=== PATIENT | female | born 1960 | race Caucasian/White ===

== ENCOUNTER 2020-09-18 10:35 | Emergency (ER) | payer OTHER ==
[~2020-09-18] VITALS: Ht 165.1 cm; Wt 105.1 kg
[2020-09-18] MEDS ORDERED: ONDANSETRON 4MG/2ML VIAL IV ONE (11:10)
[2020-09-18] MEDS ORDERED: NS 1,000 ML IV SCH (11:10)
[2020-09-18] MEDS ORDERED: GI COCKTAIL 50ML BTL(HYOSCYAMINE/MAALOX/LIDOCAINE VISCOUS)(1:3:1) PO ONE (11:10)
[2020-09-18] MEDS: MORPHINE 4 MG/ML 1ML VIAL/SYRINGE (J2270) IV PRN ×2 (11:25→11:43)
[2020-09-18 11:27] LABS: BASO % 0.2 % (0.0-1.0); EOS # 0.1 10^3/uL (0.0-0.5); HEMATOCRIT 37.3 % (36.0-47.0); HEMOGLOBIN 11.6 g/dl (12.0-15.5); LYMPH # 0.6 10^3/uL (1.5-5.0); LYMPH % 10.5 % (24.0-44.0); MEAN CORPUSCULAR HEMOGLOBIN 27.2 pg (27.0-33.0); MEAN CORPUSCULAR HGB CONC 31.1 g/dl (32.0-36.5); MEAN CORPUSCULAR VOLUME 87.6 fl (80.0-96.0); MONO # 0.3 10^3/uL (0.0-0.8); MONO % 5.6 % (2.0-8.0); NEUTROPHILS % 82.5 % (36.0-66.0); PLATELET COUNT, AUTOMATED 117 10^3/uL (150-450); RED BLOOD COUNT 4.26 10^6/uL (4.00-5.40)
--- NOTE | 2020-09-18 11:49 | REP ---
INDICATION: CHEST PAIN. COMPARISON: None. TECHNIQUE: AP view FINDINGS: The lungs are clear. The heart is not enlarged. There is no failure. IMPRESSION: Negative AP chest. <Electronically signed by Román Cochran > 09/18/20 [id number]
[2020-09-18 12:26] LABS: ALBUMIN 3.5 GM/DL (3.2-5.2); ALT/SGPT 57 U/L (12-78); BILIRUBIN,DIRECT 0.1 MG/DL (0.0-0.2); BILIRUBIN,TOTAL 0.4 MG/DL (0.2-1.0); BLOOD UREA NITROGEN 20 MG/DL (7-18); CALCIUM LEVEL 8.4 MG/DL (8.8-10.2); CARBON DIOXIDE LEVEL 26 MEQ/L (21-32); CHLORIDE LEVEL 108 MEQ/L (98-107); CREATININE FOR GFR 0.82 MG/DL (0.55-1.30); GLOMERULAR FILTRATION RATE > 60.0 (>45); GLUCOSE, FASTING 116 MG/DL (70-100); LIPASE 96 U/L (73-393); NT-PRO BNP 48 PG/ML (<125); SODIUM LEVEL 140 MEQ/L (136-145); TOTAL PROTEIN 6.5 GM/DL (6.4-8.2)
[2020-09-18] MEDS ORDERED: ISOVUE-370 76% 100ML VIAL As Ordered ONE (12:54)
[2020-09-18] MEDS: GASTROGRAFIN SOLUTION 30ML PO SCH ×2 (12:59→13:51)
--- NOTE | 2020-09-18 13:06 | ECGEPIP ---
[facility] - ED Test Date: 2020-09-18 Pat Name: MISTY FAJARDO Department: Room: - Gender: Female [employer]: TESS : 1960 Requested By: Lazara Pulliam Order Number: [id number] Reading MD: Giorgio Walker Measurements Intervals [place] Rate: 64 P: -2 KS: 158 QRS: 1 QRSD: 88 T: -24 QT: 418 QTc: 431 Interpretive Statements Normal sinus rhythm Minimal voltage criteria for LVH, may be normal variant ( R in aVL ) POOR R WAVE PROGRESSION NONSPECIFIC T WAVE ABNORMALITY(S) NO PRIORS FOR COMPARISON Electronically Signed on 09-18-2020 13:06:32 EDT by Giorgio Walker
--- NOTE | 2020-09-18 15:38 | REP ---
INDICATION: severe epigastric pain. COMPARISON: None. TECHNIQUE: Scans were obtained during contrast administration. FINDINGS: lower lungs are clear. 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 The liver shows normal size and attenuation. There is no evidence of mass or biliary tract dilatation. The gallbladder is not identified. There are no clips in the gallbladder fossa. Presumably the gallbladder was removed at the time of the gastric sleeve surgery. There are no inflammatory changes in the gallbladder fossa or right upper quadrant. The pancreas shows normal size and attenuation. There is no evidence of mass or inflammatory change. The spleen is unremarkable. The adrenal glands are not enlarged. The aorta shows normal caliber. The visceral branches are unremarkable. The kidneys show normal size and position. There is prompt symmetric excretion of contrast. The appendix is identified and shows no abnormality. The large and small bowel are unremarkable. There is no adenopathy, mass or inflammatory change in the abdomen or pelvis. The uterus and ovaries are unremarkable. There is no fluid in the cul-de-sac. IMPRESSION: No acute process. <Electronically signed by Román Cochran > 09/18/20 [id number]
[2020-09-18] MEDS ORDERED: PROT1TAB2 PO (16:11)
[2020-09-18] MEDS ORDERED: CARA1TAB6 PO (16:12)
[2020-09-18 17:01] VITALS: BP 130/58
== END 2020-09-18 17:15 | disposition home or self-care (01) ==
LOC: M ED 10:35
DX: R10.13 Epigastric pain (principal); I10 Essential (primary) hypertension; Z86.16 Personal history of COVID-19; Z98.84 Bariatric surgery status; Z87.891 Personal history of nicotine dependence; Z79.899 Other long term (current) drug therapy
CPT/HCPCS: 36415; 71045; 74177; 80048; 80076; 83690; 83880; 84484; 85025; 87798; 93005; 93041; 94760; 96361; 96374; 96375; 99285; J2270; J2405; Q9963; Q9967